=== PATIENT | female | born 1965 | race Caucasian/White ===

== ENCOUNTER 2017-03-05 15:42 | Emergency (ER) | payer OTHER, SELFPAY ==
[2017-03-05 17:26] VITALS: BP 125/79; PULSE 95; RESP 20; TEMP 37.2; O2SAT 100; BMI 25.7
[2017-03-05 17:45] LABS: UTC Influenza A Antigen Negative (Negative); UTC Influenza B Antigen Negative (Negative)
--- NOTE | 2017-03-05 19:01 | HMH.EDUTC ---
[facility] [place] Disposition Clinical Impression: Viral upper respiratory illness, Cough in adult Disposition: Home, Self-Care Condition on Discharge: Good Instructions: DI for Viral Upper Respiratory Infection -- Adult Additional Instructions: * No sign of bacterial infection. Likely viral. Virus can take 7-14 days to run their course * Monitor Temp. FU if fever develops * Encourage fluids, water, gatorade, powerade, pedialyte if infant/toddler/child * warm salt water gargles * warm fluids * sore throat lozenges * sleep elevated * humidifier/vaporizer/hot steamy shower * Inhaler every 4-6 hours as needed like we discussed. If unsure how to use it, ask pharmacist to demonstrate how. Should help open airways and improve cough, wheezing, shortness of breath. * Mucinex during the day for your cough and cough suppressant only at night. Be sure to drink lots of water. Insurance may not cover a prescription of mucinex. Might be cheaper to get 400mg tablets and take 2 tablets morning, midday and evening all with lots of water. * Tessalon Perles will not cause drowsiness but use at bedtime to help stop cough so that you can get some rest * Discussed steroids. Pt isn't sure if she has taken them before. discuss side effects. Pt wants to hold off and follow up if no better. Prescriptions: Albuterol Sulfate [Albuterol HFA Inhaler] 1 - 2 puffs IH Q4-6H PRN #1 inh PRN Reason: Shortness Of Breath Or Wheezing Benzonatate [Benzonatate 200mg Cap] 200 mg PO HS PRN #14 cap PRN Reason: Cough Referrals: Brad Islas [Primary Care Provider] - (IMMEDIATELY for new or worsening symptoms OR no noticeable improvement over the next 48-72 hours. 911 for difficulty breathing.) Time of Disposition: 19:12 Medical Decision Making Vital Signs: 03/05/17 17:26 Temperature 98.9 F Temperature Source Temporal Artery Scan Pulse Rate [Left Brachial] 95 H Respiratory Rate 20 Blood Pressure [Left Arm] 125/79 Blood Pressure Mean [Left Arm] 94 Blood Pressure Source [Left Arm] Automatic Cuff Blood Pressure Position [Left Arm] Sitting 02 Sat by Pulse Oximetry 100 Oxygen Delivery Method Room Air - Lab Data Lab results reviewed: Yes: I reviewed the patient's lab results. Lab Results 03/05/17 17:35: Influenza Type A Ag Negative, Influenza Type B Ag Negative - Daniele Inquiry Pt receiving controlled substance: No [facility] [place] HPI - General Stated complaint: Congestion, coughing, headache Time Seen by Provider: 03/05/17 19:01 Mode of Arrival: Family Vehicle Source of Information: Patient Limitations: No Limitations Description of Symptoms (Recalled from Triage Doc. by RN): COUGH, SOB, HEADACHE SINCE YESTERDAY. PT HAD THESE SYMPTOMS AROUND JAZZY ALSO. HEENT Symptoms (Recalled from RN notes): Yes (HEADACHE) Resp Symptoms (Recalled from RN notes): Yes (COUGH,SOB) Skin Symptoms (Recalled from RN notes): No MS Symptoms (Recalled from RN notes): No Functional Status (Recalled from RN notes): NA - History of Present Illness Provider Complaint: c/o nonprod cough, minimal SOA, head pressure, nasal congestion, sore throat w/ cough all starting yesterday. Reports similiar symptoms but with body aches, chills, fever around Jazzy. Improved. Minimal lingering cough at times. Hasn't taken or tried anything for symptoms. Spouse just had same symptoms. - Related Data Home Medications Medication Instructions Recorded Confirmed Dextroamphetamine/Amphetamine 30 mg PO DAILY 03/05/17 03/05/17 [Adderall 30 mg Tablet] Estradiol [Estradiol] 1 mg PO DAILY 03/05/17 03/05/17 Levothyroxine Sodium 100 mcg PO DAILY 03/05/17 03/05/17 [Levothyroxine 100mcg (0.1MG) Tab] Lisinopril/Hydrochlorothiazide 1 tab PO DAILY 03/05/17 03/05/17 [Lisinopril-Hctz 20-25 mg Tab] Metoprolol Tartrate [Metoprolol 100 mg PO DAILY 03/05/17 03/05/17 Tartrate 100mg Tablet] Previous Rx's Medication Instructions Recorded Albuterol Sulfate [Albuterol HFA 1 - 2 puffs IH Q4-6H P
== END 2017-03-05 19:14 | disposition home or self-care (01) ==
PROVIDERS: Nurse Practitioner Family; Emergency Provider General Practice; Family Provider Family Medicine; PCP Family Medicine
DX: J06.9 Acute upper respiratory infection, unspecified (principal); I10 Essential (primary) hypertension; E89.0 Postprocedural hypothyroidism; Z79.890 Hormone replacement therapy; Z79.899 Other long term (current) drug therapy; G47.419 Narcolepsy without cataplexy
CPT/HCPCS: 87804; 99201

== ENCOUNTER → 2017-10-02 15:42 | Outpatient (CLI) | payer BC, SELFPAY ==
--- NOTE | 2017-10-02 15:50 | MR_ITS ---
MR hip RT wo con HISTORY: Right hip pain ITS.REASON: PAIN ORDERING PHYSICIAN: Brad Islas PATIENT AGE: 52 years COMPARISON:none TECHNIQUE: Routine multiplanar multiecho sequences are performed without contrast. FINDINGS: No fracture or dislocation. No abnormal signal within the femoral head that would indicate avascular necrosis. No significant arthritic change or effusion. No mass or destructive process. The surrounding muscles and tendons. IMPRESSION: Negative MRI of the right hip of the right hip have an unremarkable appearance
== END ==
PROVIDERS: Family Provider Family Medicine; PCP Family Medicine; Visit Provider Family Medicine
DX: M25.552 Pain in left hip (principal)
CPT/HCPCS: 73721

== ENCOUNTER → 2020-02-07 10:30 | Outpatient (CLI) | payer BC, SELFPAY ==
[2020-02-08 10:16] LABS: Covid-19 Nasal PCR Sendout P&C Negative
== END ==
PROVIDERS: PCP Family Medicine; Visit Provider Family Medicine
DX: Z03.818 Encounter for observation for suspected exposure to other biological agents ruled out (principal)
CPT/HCPCS: U0004

== ENCOUNTER 2020-03-31 10:57 | Emergency (ER) | payer BC, SELFPAY ==
[2020-03-31 11:05] VITALS: BP 152/54; PULSE 85; RESP 20; TEMP 36.9; O2SAT 97; BMI 26.6
--- NOTE | 2020-03-31 11:22 | HMH.EDUTC ---
[facility] [place] Clinical Impression: URI (upper respiratory infection) Qualifiers: URI type: unspecified URI Qualified Code(s): J06.9 - Acute upper respiratory infection, unspecified Disposition: Home, Self-Care Condition on Discharge: Good Instructions: DI for Sinusitis, Sinusitis, DI for COVID-19 (Suspected or Confirmed ), Coronavirus Disease 2019, Azithromycin Additional Instructions: *Monitor Temp, Over the counter Motrin or Tylenol as directed/as needed Tylenol every 4 hours and Motrin every 6 hours (as long as your family doctor has told you that you can take it) for fever or pain. and straight to ER if unable to lower temp less than 101.0 after medication given *Warm salt water gargles may help to soothe the throat *Throat Lozenges *Warm fluids like tea with honey may help to soothe the throat *Sleep elevated *Humidifier/Vaporizer *Flonase 2 sprays in each nostril daily but be aware that it may take 2-3 days before you notice improvement Follow up IMMEDIATELY for new or worsening symptoms or no Noticeable improvement over the next 48-72 hours. 911 for difficulty breathing or swallowing You were tested for today for COVID19 your test result should be back in the next 24-48 hours, you may call to the [facility] to see if your test results are back in the next 48 hours [phone] [facility] hours are 9am-9pm You was given a handout with instructions for Self Quarantine and Self isolation for while you wait on test results and what to do if they are positive If you are positive the Health Dept will be contacting you also Follow up with Eye doctor for eye exam if you continued to have vision disturbances Follow up with your Family Doctor if any worsening of symptoms Prescriptions: Fluticasone Propionate [Flonase 50mcg nasal spray 16gm] 1 spr NS DAILY #1 bottle Transmission Status: Pending to [facility] Azithromycin [Z-Jerry 250mg Tab] 250 mg PO DIRECTED #6 tab Transmission Status: Pending to [facility] Referrals: Brad Islas [Primary Care Provider] - As needed Forms: Work/School Release Time of Disposition: 11:31 Medical Decision Making - Daniele Inquiry Pt receiving controlled substance: No Daniele was queried for this patient: No Vital Signs: 03/31/20 11:05 Temperature 98.5 F Temperature Source Oral Pulse Rate [Left Brachial] 85 Respiratory Rate 20 Blood Pressure [Left Arm] 152/54 H Blood Pressure Mean [Left Arm] 86 Blood Pressure Source [Left Arm] Automatic Cuff Blood Pressure Position [Left Arm] Sitting 02 Sat by Pulse Oximetry 97 Oxygen Delivery Method Room Air - Lab Data Lab results reviewed: Yes: I reviewed the patient's lab results. Orders (Tests/Meds): ORDERS Category Date Time Status Covid-19 Nasal PCR ([facility]) Routine Lab 03/31/20 11:01 Ordered Medical Decision Narrative: Discussed with patient that she could be transferred to the ED for further evaluation of blurry vision and declined Reports it has been awhile since last eye exam and thinks she needs new glasses [facility] [place] HPI - General Stated complaint: covid test, aches, soa Time Seen by Provider: 03/31/20 11:22 Mode of Arrival: Ambulatory Source of Information: Patient Limitations: No Limitations Description of Symptoms (Recalled from Triage Doc. by RN): PATIENT C/O PRODUCTIVE COUGH, SOA, AND BLURRED VISION SINCE YESTERDAY. 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
[2020-03-31 11:43] VITALS: BP 152/54; PULSE 85; RESP 20; TEMP 36.9; O2SAT 97
[2020-03-31 11:51] LABS: UTC Influenza A Antigen Negative (Negative); UTC Influenza B Antigen Negative (Negative)
--- NOTE | 2020-03-31 21:02 | PC.NURSE ---
ATTEMPTED TO CALL PT ABOUT COVID RESULTS. NO ANSWER, WILL TRY AGAIN IN THE MORNING
--- NOTE | 2020-04-01 10:03 | PC.NURSE ---
PATIENT NOTIFIED OF POSITIVE COVID TEST AT THIS TIME
== END 2020-03-31 11:45 | disposition home or self-care (01) ==
PROVIDERS: Emergency Provider Nurse Practitioner; PCP Family Medicine
DX: U07.1 COVID-19 (principal); J06.9 Acute upper respiratory infection, unspecified; I10 Essential (primary) hypertension; Z79.899 Other long term (current) drug therapy
CPT/HCPCS: 87804; 99202; G0463; U0003

== ENCOUNTER 2020-10-17 11:30 | Emergency (ER) | payer BC, SELFPAY ==
[2020-10-17 12:25] VITALS: BP 141/76; PULSE 65; RESP 18; TEMP 36.6; O2SAT 99; BMI 25.2
--- NOTE | 2020-10-17 12:59 | HMH.EDUTC ---
[facility] [place] Impression: Close exposure to COVID-19 virus Disposition: Home, Self-Care Condition on Discharge: Good Instructions: DI for COVID-19 (Suspected or Confirmed ), Preventing the Spread of Coronavirus Discharge Instructions Additional Instructions: *Monitor Temp, Over the counter Motrin or Tylenol as directed/as needed Tylenol every 4 hours and Motrin every 6 hours (as long as your family doctor has told you that you can take it) for fever or pain. and straight to ER if unable to lower temp less than 101.0 after medication given Follow up IMMEDIATELY for new or worsening symptoms or no Noticeable improvement over the next 48-72 hours. 911 for difficulty breathing or swallowing You were tested for today for COVID19 your test result should be back in the next 24-48 hours, you was given instructions on how to log on the [facility] portal for your results. If you do not have internet or access you may call the [facility]. You was given a handout with instructions for Self Quarantine and Self isolation for while you wait on test results and what to do if they are positive If you are positive the Health Dept will be contacting you also Make sure to take your Vitamins Vit. C Vit D and Zinc if you can take them Referrals: Brad Islas [Primary Care Provider] - As needed Forms: Work/School Release Time of Disposition: 13:07 Medical Decision Making - Daniele Inquiry Pt receiving controlled substance: No Daniele was queried for this patient: No Vital Signs: 10/17/20 12:25 Temperature 97.8 F Temperature Source Oral Pulse Rate [Right] 65 Respiratory Rate 18 Blood Pressure [Right Arm] 141/76 H Blood Pressure Mean [Right Arm] 97 02 Sat by Pulse Oximetry 99 Orders (Tests/Meds): ORDERS Category Date Time Status Covid-19 Nasal PCR ([facility]) Routine Lab 10/17/20 12:20 Received [facility] [place] - General Stated complaint: covid test Time Seen by Provider: 10/17/20 12:59 Description of Symptoms (Recalled from Triage Doc. by RN): COVID TEST, TESTED + YESTERDAY, DENIES SYMPTOMS HEENT Symptoms (Recalled from RN notes): No Resp Symptoms (Recalled from RN notes): No Skin Symptoms (Recalled from RN notes): No MS Symptoms (Recalled from RN notes): No Functional Status (Recalled from RN notes): WNL - History of Present Illness Provider Complaint: Patient states that her tested positive for COVID yesterday State that she has been around him States that she is not having any symptoms at this time but wanted to get tested - Related Data Home Medications Medication Instructions Recorded Confirmed Dextroamphetamine/Amphetamine 30 mg PO DAILY 03/05/17 03/31/20 [Adderall 30 mg Tablet] Levothyroxine Sodium 50 mcg PO DAILY 03/05/17 03/31/20 [Levothyroxine 100mcg (0.1MG) Tab] Lisinopril/Hydrochlorothiazide 1 tab PO DAILY 03/05/17 03/31/20 [Lisinopril-Hctz 20-25 mg Tab] Metoprolol Tartrate [Metoprolol 100 mg PO DAILY 03/05/17 03/31/20 Tartrate 100mg Tablet] estradioL [Estradiol] 1 mg PO DAILY 03/05/17 03/31/20 Previous Rx's Medication Instructions Recorded Polyvinyl Alcohol [Artificial 15 ml OP Q4H 7 Days #15 drops 06/20/17 Tears Soln 15mL Bottle] montelukast 10 mg tablet 10 mg PO QAM #90 tab 03/29/18 Azithromycin [Z-Jerry 250mg Tab] 250 mg PO DIRECTED #6 tab 03/31/20 Fluticasone Propionate [Flonase 1 spr NS DAILY #1 bottle 03/31/20 50mcg nasal spray 16gm] Allergies Allergy/AdvReac Type Severity Reaction Status Date / Time milk Allergy Verified 10/17/20 12:29 - Worker's Comp Is this a Worker's Comp case?: No [facility] History - Hepatitis A Screen Drug use history?: No High risk sexual behaviors?: No History of sexually transmitted infection?: No Currently employed?: No Childcare worker?: No Do you have indoor plumbing?: Yes Do you have electricity?: Yes Attestation statement:: This patient has been screened for Hepatitis A risk factors. I have reviewed th
[2020-10-17 13:14] VITALS: BP 141/76; PULSE 65; RESP 18; TEMP 36.6; O2SAT 99
== END 2020-10-17 13:15 | disposition home or self-care (01) ==
PROVIDERS: Emergency Provider Nurse Practitioner; PCP Family Medicine
DX: Z20.822 Contact with and (suspected) exposure to COVID-19 (principal)
CPT/HCPCS: 99202; G0463; U0003

== ENCOUNTER 2020-12-16 09:34 | Emergency (ER) | payer BC, SELFPAY ==
[2020-12-16 11:05] VITALS: BP 150/79; PULSE 70; RESP 18; TEMP 36.7; O2SAT 100; BMI 25.9
--- NOTE | 2020-12-16 11:09 | HMH.EDUTC ---
[facility] [place] Disposition Clinical Impression: Viral syndrome, Bronchitis Sinusitis Qualifiers: Sinusitis location: unspecified location Chronicity: acute Recurrence: non-recurrent Qualified Code(s): J01.90 - Acute sinusitis, unspecified Disposition: Home, Self-Care Condition on Discharge: Good Instructions: DI for Sinusitis, DI for Acute Bronchitis, DI for COVID-19 (Suspected or Confirmed ), Preventing the Spread of Coronavirus Discharge Instructions Additional Instructions: Drink plenty of fluids. Take tylenol or ibuprofen for pain or fever. Take the medications as directed. Follow up with your regular doctor. GO TO THE ER FOR ANY WORSENING SYMPTOMS Quarantine until you know the results of your covid-19 test. If it is positive, the health department should call you and give you further instructions about your length of Quarantine and other things. Notify your school or workplace of your results and follow their instructions regarding return to work/school. Prescriptions: Benzonatate [Benzonatate 100mg cap] 100 mg PO TIDP PRN #30 cap PRN Reason: Cough Transmission Status: Received by [facility] methylPREDNISolone [Medrol] 4 mg PO DIRECTED 6 Days #21 packet Transmission Status: Received by [facility] Azithromycin [Z-Jerry 250mg Tab*] 250 mg PO UD DOSE PK #6 tab Transmission Status: Received by [facility] Referrals: Brad Islas [Primary Care Provider] - Forms: Work/School Release Time of Disposition: 11:29 Medical Decision Making - Medical Records Medical records reviewed: No: I reviewed the patient's medical records. - Adniele Inquiry Pt receiving controlled substance: No Vital Signs: 12/16/20 11:05 12/16/20 11:45 Temperature 98.1 F 98.1 F Temperature Source Oral Pulse Rate 70 Pulse Rate [Left] 70 Respiratory Rate 18 100 H Blood Pressure 150/79 H Blood Pressure [Right Arm] 150/79 H Blood Pressure Mean [Right Arm] 102 02 Sat by Pulse Oximetry 100 - Lab Data Lab results reviewed: Yes: I reviewed the patient's lab results. Lab Results 12/16/20 11:15: Strep Scn Rapid Clinic Negative Orders (Tests/Meds): ORDERS Category Date Time Status Strep Screen Confirmation Routine Micro 12/16/20 11:15 Received [facility] [place] HPI - General Stated complaint: sore throat,cough,headache,congestion Time Seen by Provider: 12/16/20 11:09 - History of Present Illness Provider Complaint: She c/o chest and sinus congestion, cough, chilling and low grade fever for the past 2 days. Her had covid-19 about 2 weeks ago. She has not been vaccinated, but she did have covid-19 around 5 months ago. She states that she feels like she has it again. - Related Data Home Medications Medication Instructions Recorded Confirmed Dextroamphetamine/Amphetamine 30 mg PO DAILY 03/05/17 03/31/20 [Adderall 30 mg Tablet] Levothyroxine Sodium 50 mcg PO DAILY 03/05/17 03/31/20 [Levothyroxine 100mcg (0.1MG) Tab] Lisinopril/Hydrochlorothiazide 1 tab PO DAILY 03/05/17 03/31/20 [Lisinopril-Hctz 20-25 mg Tab] Metoprolol Tartrate [Metoprolol 100 mg PO DAILY 03/05/17 03/31/20 Tartrate 100mg Tablet] estradioL [Estradiol] 1 mg PO DAILY 03/05/17 03/31/20 Previous Rx's Medication Instructions Recorded Polyvinyl Alcohol [Artificial 15 ml OP Q4H 7 Days #15 drops 06/20/17 Tears Soln 15mL Bottle] montelukast 10 mg tablet 10 mg PO QAM #90 tab 03/29/18 Azithromycin [Z-Jerry 250mg Tab] 250 mg PO DIRECTED #6 tab 03/31/20 Fluticasone Propionate [Flonase 1 spr NS DAILY #1 bottle 03/31/20 50mcg nasal spray 16gm] Azithromycin [Z-Jerry 250mg Tab*] 250 mg PO UD DOSE PK #6 tab 12/16/20 Benzonatate [Benzonatate 100mg 100 mg PO TIDP PRN #30 cap 12/16/20 cap] methylPREDNISolone [Medrol] 4 mg PO DIRECTED 6 Days #21 12/16/20 packet Allergies Allergy/AdvReac Type Severity Reaction Status Date / Time milk Allergy Verified 10/17/20 12:29 H
[2020-12-16 11:20] LABS: UTC Strep Screen (Rapid) Negative (Negative)
[2020-12-16 11:45] VITALS: BP 150/79; PULSE 70; RESP 100; TEMP 36.7
== END 2020-12-16 11:47 | disposition home or self-care (01) ==
PROVIDERS: Emergency Provider Nurse Practitioner Family; PCP Family Medicine
DX: J01.90 Acute sinusitis, unspecified (principal); I10 Essential (primary) hypertension; E03.9 Hypothyroidism, unspecified; Z20.822 Contact with and (suspected) exposure to COVID-19
CPT/HCPCS: 87880; 99202; C9803; G0463; U0003; U0005